=== PATIENT | female | born 1975 | race Caucasian/White ===

== ENCOUNTER 2022-12-13 10:31 | Day surgery (SDC) | payer OTHER ==
[2022-12-12 11:19] LABS: COVID AG,FIA SOURCE NASAL SWAB
[~2022-12-13] VITALS: Ht 152.4 cm; Wt 77.0 kg
[~2022-12-13 10:31] MED LIST: SODIUM CHLORIDE 0.9% 1,000 ML IV ONE; SODIUM CHLORIDE 0.9% 1,000 ML ONE
[2022-12-13] MEDS ORDERED: LIDOCAINE/PF 2% 5 ML VIAL IM ONE (10:32)
[2022-12-13] MEDS ORDERED: PROPOFOL 1% 20 ML VIAL IVP ONE (10:32)
== END 2022-12-13 15:00 | disposition home or self-care (01) ==
LOC: SURGERY 10:31
PROVIDERS: ATTEND Internal Medicine Gastroenterology
DX: Z12.11 Encounter for screening for malignant neoplasm of colon (principal); K57.30 Diverticulosis of large intestine without perforation or abscess without bleeding; K64.8 Other hemorrhoids; Z20.822 Contact with and (suspected) exposure to COVID-19; Z90.49 Acquired absence of other specified parts of digestive tract; Z98.890 Other specified postprocedural states; Z88.8 Allergy status to other drugs, medicaments and biological substances
CPT/HCPCS: 87426; 84703; 45378; C9803; C1769; J2704; J3490; J7030